=== PATIENT | female | born 2000 | race Hispanic/Latino ===

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

== ENCOUNTER 2021-08-30 06:10 | Emergency (ER) | payer OTHER ==
--- OUTSIDE RECORDS SUMMARY | 2021-08-30 06:13 | XMS REPORT | Continuity of Care Document ---
:2000 Author Organization [facility] t Address [address] [place] [address] Care Team Providers Name Role Phone MAR REYNLODS Primary Care Physician Unavailable Lana DOMINGUEZ Attending Clinician Unavailable Sharda REYNOLDS Attending Clinician Unavailable TAMMY Attending Clinician Unavailable Only, Db Test Attending Clinician Unavailable Akbar UMANA Attending Clinician AKBAR Attending Clinician Unavailable Lana Rodriguez Attending Clinician Payers Payer Name Policy Type Policy Number Effective Date Expiration Date S [facility] [id number] 2020 00:00:00 Problems Condition Condition Condition Status Onset Resolution Last Treating Co mments Source Name Details Category Date Date Treatment Clinician Date Encounter Encounter Disease Active Uni vers for other for other 10-19 ity of general general 00:00: [place] counseling counseling 00 Me dical or advice or advice Bran ch on on contracept contracept ion ion BMI BMI Disease Active 2019- Univers 26.0-26.9, 26.0-26.9, 9-30 it y of adult adult 00:00: [place] 00 Medical Branch Allergies, Adverse Reactions, Alerts Allergy Allergy Status Severity Reaction(s) Onset Inactive Treating Comm ents Source Name Type Date Date Clinician NO KNOWN Drug Active Univers ALLERGIE Class ity of S [place] [facility] [place] Social History Social Habit Start Date Stop Date Quantity Comments Source Exposure to Not sure University of SARS-CoV-2 [place] [facility] (event) Branch Alcohol intake 2021-05-17 2021-05-17 Current University of 00:00:00 00:00:00 non-drinker of [facility] alcohol Branch (finding) History [facility] 2019-02-01 2019-02-01 5 University o f Financial 00:00:00 00:00:00 [place] [facility] History [facility] Food 2019-02-01 2019-02-01 1 Univers ity of Worry 00:00:00 00:00:00 [place] [facility] History [facility] Food 2019-02-01 2019-02-01 1 Univers ity of Scarcity 00:00:00 00:00:00 [place] [facility] History [facility] 2019-02-01 2019-02-01 2 University o f Transport Med 00:00:00 00:00:00 [place] [facility] History [facility] 2019-02-01 2019-02-01 2 University o f Transport Non-Med 00:00:00 00:00:00 [facility] edical Branch Tobacco use and 2018-12-11 2018-12-11 Never used Universit y of exposure 00:00:00 00:00:00 [facility] Sex Assigned At [birth year] Universit y of 00:00:00 00:00:00 [facility] Smoking Status Start Date Stop Date Source Never smoker [facility] Medications Ordered Filled Start Stop Current Ordering Indication Dosage Frequency Signature Comments Components Source Medication Medication Date Date Medication? Clinician (SIG) Name Name LOESTRIN FE Yes [id number] 1{tbl} Take 1 Univers (MICROGESTI 8-17 tablet by ity of N FE 08/04) 00:00: mouth [place] 1 mg-20 mcg 00 daily. Medica l (21)/75 mg Branch (7) tablet LOESTRIN FE Yes [id number] 1{tbl} Take 1 Univers (MICROGESTI 8-17 tablet by ity of N FE 08/04) 00:00: mouth [place] 1 mg-20 mcg 00 daily. Medica l (21)/75 mg Branch (7) tablet LOESTRIN FE Yes [id number] 1{tbl} Take 1 Univers (MICROGESTI 8-17 tablet by ity of N FE 08/04) 00:00: mouth [place] 1 mg-20 mcg 00 daily. Medica l (21)/75 mg Branch (7) tablet Immunizations Ordered Filled Immunization Date Status Comments Sour e Immunization Name Name HPV9 2020-06-14 Completed University of 00:00: [facility] Influenza Virus 2020-06-14 Completed Universit y of Vaccine Quad .5 mL 00:00:00 [facility] 6+ MO Branch HPV9 2020-06-14 Completed University of 00:00: [facility] Influenza Virus 2020-06-14 Completed Universit y of Vaccine Quad .5 mL 00:00:00 [facility] IM 6+ MO Branch HPV9 2020-06-14 Completed University of 00:00:00 [facility] Influenza Virus 2020-06-14 Completed Universit y of Vaccine Quad .5 mL 00:00:00 [facility] 6+ MO Branch HPV9 2020-04-30 Completed University of 00:00:00 [facility] HPV9 2020-04-30 Completed University of 00:00:00 [facility] HPV9 2020-04-30 Completed University of 00:00:00 [facility] TDAP 2020-03-02 Completed University of 00:00:00 [facility] Rho (d) Immune 2020-03-02 Completed University of Globulin 00:00:00 [facility] TDAP 2020-03-02 Completed University of 00:00:00 [facility] Rho (d) Immune 2020-03-02 Completed University of Globulin 00:00:00 [facility] TDAP 2020-03-02 Completed University of 00:00:00 [facility] Rho (d) Immune 2020-03-02 Completed University of Globulin 00:00:00 [facility] Rho (d) Immune 2019-02-02 Completed University of Globulin 00:00:00 [facility] Rho (d) Immune 2019-02-02 Completed University of Globulin 00:00:00 [facility] Rho (d) Immune 2019-02-02 Completed University of Globulin 00:00:00 [facility] TDAP 2018-12-11 Completed University of 00:00:00 [facility] TDAP 2018-12-11 Completed University of 00:00:00 [facility] TDAP 2018-12-11 Completed University of 00:00:00 [facility] Vital Signs Vital Name Observation Time Observation Value Comments Source Systolic blood 2021-05-17 17:53:00 114 mm[Hg] Univer sity of pressure [facility] Diastolic blood 2021-05-17 17:53:00 73 mm[Hg] Unive rsity of pressure [facility] Heart rate 2021-05-17 17:53:00 72 /min [facility] Body temperature 2021-05-17 17:53:00 36.61 [place] Respiratory rate 2021-05-17 17:53:00 18 /min [facility] Body height 2021-05-17 17:53:00 157.5 cm [facility] Body weight 2021-05-17 17:53:00 68.947 kg [facility] BMI 2021-05-17 17:53:00 27.80 kg/m2 [facility] Procedures Procedure Date / Time Performed Performing Clinician Sourc e POCT TEST 2021-05-17 18:07:00 [facility] Encounters Start End Encounter Admission Attending Care Care Encounter Source Date/Time Date/Time Type Type Clinicians Facility Department ID 2021-11-03 2021-11-03 Outpatient R ANGELICA [facility] [id number] Univers 09:45:00 09:45:00 YRIS [facility] 2021-09-05 2021-09-05 Outpatient R RODOLFO, [facility] [id number] Univers 15:00:00 15:00:00 MAR [id number] ity o f [facility] 2021-09-05 2021-09-05 Outpatient R RODOLFO [facility] [id number] Univers 15:00:00 15:00:00 MAR ity o f [facility] 2021-08-01 2021-08-01 Outpatient R [facility] [id number] Univers 10:45:00 10:45:00 [id number] [facility] 2021-08-01 2021-08-01 Outpatient R TAMMY, [facility] [id number] Univers 10:45:00 10:45:00 JOSE [facility] 2021-07-20 2021-07-20 Outpatient [facility] [id number] Univers 11:45:00 11:45:00 [id number] [facility] 2021-07-18 2021-07-18 Laboratory Only, Ang Db Test [facility] [id number] Univers 11:45:00 12:00:00 Only Norah Webber [facility] [id number] [facility] [id number] Mychal as LAUREN?BLEA [id number] Ma joana [address] MEDICAL OFFICE BUILDING 2021-07-18 2021-07-18 [facility] [id number] Univers 11:45:00 11:45:00 NORAH [facility] 2021-07-18 2021-07-18 Outpatient R [facility] [id number] Univers 11:45:00 11:45:00 [id number] [facility] 2021-05-17 2021-05-[address] [facility] [id number] Univers 12:46:31 13:06:38 Visit Yris Schwartz [employer] [id number] it [facility] [id number] Mychal as MATERNAL [id number] [facility] ical & CHILD [address] [place] [address] Results Test Description Test Time Test Comments Results Result Comments Source POCT TEST 2021-05-17 18:07:00 Test Item Value Reference Range Interpretation Comme nts POCT PREG (test code = 1605) Negative On board controls acceptable with C Line (test code = 3574) Yes POCT PREG LOT # (test code = 3575) POCT PREG TEST DATE (test code = 3576) [id number] 18:07:00 Test Item Value Reference Range Interpretation Comments POCT PREG (test code = 1605) Negative On board controls acceptable with C Yes Line (test code = 3574) POCT PREG LOT # (test code = 3575) POCT PREG TEST DATE (test code = 3576) [facility]
--- NOTE | 2021-08-30 07:07 | RAD REPORT ---
EXAM DESCRIPTION: US - Abdomen Exam Limited - 08/30/2021 6:56 am CLINICAL HISTORY: EPIGASTRIC PAIN COMPARISON: None FINDINGS: Gallbladder size is normal. There is no wall thickening or pericholecystic fluid. No mobil e gallstones are identified. There is a 6 x 2 mm sessile echogenic mass that is isoechoic to and adhe rent to the wall of the gallbladder. No posterior acoustic shadowing seen. This is most likely a gall bladder polyp rather than nonshadowing stone or tumefactive sludge. No other intra lumen abnormality or focal finding. No common duct stone or biliary tree dilatation identified. IMPRESSION: No acute gallbladder finding. A 6 mm polyp is seen in the midportion of the gallbladder. No duct stone or biliary tree dilatation.
[2021-08-30 07:10] LABS: Absolute Lymphocytes (CBC) 1.8 K/uL (0.7-4.9); Hematocrit 35.8 % (36.0-45.0); Lymphocytes % 21.4 % (15.3-44.8); MPV 7.2 fL (7.6-11.3); RBC Red Blood Cell Count 4.08 M/uL (3.86-4.86)
[2021-08-30] MEDS ORDERED: KETOROLAC 30 MG/ML INJ ONE (07:16)
[2021-08-30] MEDS ORDERED: FAMOTIDINE 20 MG/2 ML VIAL IV ONE (07:16)
[2021-08-30] MEDS ORDERED: NA CHLORIDE 0.9% 1,000 ML ONE (07:16)
[2021-08-30] MEDS ORDERED: ONDANSETRON 4 MG/2 ML VIAL ONE (07:16)
[2021-08-30 07:23] LABS: Urine Specific Gravity/Preg >1.030 (1.005-1.030)
[2021-08-30 07:37] LABS: Alkaline Phosphatase 80 U/L (45-117); BUN Blood Urea Nitrogen 15 mg/dL (7-18); Bicarbonate 24 mmol/L (21-32); Bilirubin Total 0.5 mg/dL (0.2-1.0); Glucose Level 95 mg/dL (74-106); Lipase 127 U/L (73-393); Potassium 3.8 mmol/L (3.5-5.1); Sodium Level 138 mmol/L (136-145)
[2021-08-30 08:00] LABS: ALT/SGPT 37 U/L (12-78); AST/SGOT 46 U/L (15-37); Albumin 3.5 g/dL (3.4-5.0); Bilirubin Direct 0.2 mg/dL (0-0.2); Protein, Total 6.9 g/dL (6.4-8.2)
--- NOTE | 2021-08-30 08:25 | ER ---
Nurse's Notes [facility] Name: Luh Her Age: 21 yrs Sex: Female : 2000 Arrival Date: 08/30/2021 Time: 06:14 Bed 6 Private MD: Diagnosis: Epigastric pain Presentation: 08/30 06:20 Chief complaint: Patient states: Epigastric pain that radiates to her back started at st1 0100 today. Coronavirus screen: Vaccine status: Patient reports receiving the 2nd dose of the covid vaccine. pfizer. Ebola Screen: No symptoms or risks identified at this time. 06:20 Method Of Arrival: Ambulatory st1 06:22 Initial Sepsis Screen: Does the patient meet any 2 criteria? No. Patient's initial st1 sepsis screen is negative. Does the patient have a suspected source of infection? No. Patient's initial sepsis screen is negative. Risk Assessment: Do you want to hurt yourself or someone else? Patient reports no desire to harm self or others. Onset of symptoms was August 30, 2021. 06:22 Acuity: MAO 3 st1 Triage Assessment: 06:22 General: Appears in no apparent distress. uncomfortable, slender, well groomed, well st1 developed, Behavior is calm, cooperative. Pain: Complains of pain in Epigastric region Pain radiates to Back Pain currently is 6 out of 10 on a pain scale. Quality of pain is described as radiating, sharp. Cardiovascular: No deficits noted. Denies chest pain, diaphoresis, fatigue, lightheadedness, nausea, shortness of breath, syncope, vomiting. 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 - Social history:: Smoking status: Patient denies any tobacco usage or history of. Patient/guardian denies using alcohol, street drugs, IV drugs. Screenin:32 Abuse screen: Denies threats or abuse. Nutritional screening: No deficits noted. st1 Tuberculosis screening: No symptoms or risk factors identified. Fall Risk None identified. No fall in past 12 months (0 pts). No secondary diagnosis (0 pts). IV access (20 points). Ambulatory Aid- None/Bed Rest/Nurse Assist (0 pts). Gait- Normal/Bed Rest/Wheelchair (0 pts) Mental Status- Oriented to own ability (0 pts). Total Smith Fall Scale indicates No Risk (0-24 pts). Assessment: 07:15 General: Appears in no apparent distress. uncomfortable, Behavior is calm, cooperative, jl7 appropriate for age. Pain: Complains of pain in epigastric area Pain does not radiate. Pain currently is 7 out of 10 on a pain scale. Quality of pain is described as aching, sharp, Pain began 7 hours ago Is continuous. Neuro: Level of Consciousness is awake, alert, obeys commands, Oriented to person, place, time, situation. Cardiovascular: Patient's skin is warm and dry. Respiratory: Airway is patent Respiratory effort is even, unlabored, Respiratory pattern is regular, symmetrical. GI: Abdomen is non-distended, Bowel sounds present X 4 quads. hyperactive in right upper quadrant, left upper quadrant, right lower quadrant and left lower quadrant Patient currently denies constipation, diarrhea, nausea, vomiting. :. Derm: Skin is pink, warm \T\ dry. Vital Signs: 06:22 BP 126 / 75; Pulse 91; Resp 16; Temp 98.2; Pulse Ox 100% on R/A; Weight 66.68 kg; st1 Height 5 ft. 2 in. (157.48 cm); Pain 7/10; 07:34 BP 108 / 73; Pulse 71; Resp 15; Pulse Ox 100% ; jl7 08:34 BP 111 / 73; Pulse 78; Resp 16; Pulse Ox 99% on R/A; ic1 06:22 Body Mass Index 26.89 (66.68 kg, 157.48 cm) st1 ED Course: 06:14 Patient arrived in ED. ja2 06:22 Arm band placed on right wrist. st1 06:23 Triage completed. st1 06:25 Solo Melendez PA is PHCP. cp 06:25 Solo Shepherd MD is Attending Physician. cp 06:32 Patient has correct armband on for positive identification. Placed in gown. Bed in low st1 position. Call light in reach. Side rails up X 1. desk monitor on. Pulse ox on. NIBP on. 06:32 Patient maintains SpO2 saturation greater than 95% on room air. st1 06:55 Initial lab(s) drawn, by me, sent to lab. Missed attempt(s): 20 gauge in right bb antecubital area. Bleeding controlled, band aid applied, catheter tip intact. 06:56 US Abdomen Limited In Process Unspecified. EDMS 07:00 Annika Rowland RN is Primary Nurse. st1 07:20 Urine collected: clean catch specimen. Inserted saline lock: 20 gauge in right jl7 antecubital area, using aseptic technique. Blood collected. 07:29 Primary Nurse role handed off by Annika Rowland RN jl7 07:29 Esequiel Mendoza RN is Primary Nurse. jl7 08:11 XRAY Chest (1 view) In Process Unspecified. EDMS 08:23 Ayush Christian MD is Referral Physician. cp 08:35 IV discontinued, intact, bleeding controlled, No redness/swelling at site. Pressure ic1 dressing applied. Administered Medications: 07:20 Drug: Pepcid (famotidine) 20 mg Route: IVP; Site: right forearm; jl7 07:50 Follow up: Response: No adverse reaction jl7 07:22 Drug: NS 0.9% 1000 ml Route: IV; Rate: 1 bolus; Site: right forearm; jl7 08:35 Follow up: IV Status: Completed infusion; IV Intake: 1000ml ic1 07:27 Drug: Ketorolac 15 mg Route: IVP; Site: right forearm; jl7 07:50 Follow up: Response: No adverse reaction; Pain is decreased jl7 07:28 Not Given (Patient Refused): Zofran (Ondansetron) 4 mg IVP once; over 2 minutes st1 Intake: 08:35 IV: 1000ml; Total: 1000ml. ic1 Outcome: 08:23 Discharge ordered by . cp 08:35 Discharged to home ambulatory. ic1 08:35 Condition: stable 08:35 Discharge instructions given to patient, Instructed on discharge instructions, follow up and referral plans. Demonstrated understanding of instructions, follow-up care, medications, Prescriptions given X 2. 08:44 Patient left the ED. ic1 Signatures: Dispatcher [employer] EDOK Allyson Daniels RN RN bb Page, Solo, Esequiel Whittaker cp, RN RN jl7 Marquita Sanders2 Sarai Rayo RN RN ic1 Annika Rowland RN RN st1 Corrections: (The following items were deleted from the chart) 06:33 06:33 Pain: Pain began st1 st1 07: 07:27 Ketorolac 15 mg IVP in right forearm st1 jl7 07: 07:22 Pepcid (famotidine) 20 mg IVP in right forearm [facility] : 07:22 NS 0.9% 1000 ml IV at 1 bolus in right forearm st1 jl7
--- NOTE | 2021-08-30 08:25 | EDPHYS ---
Physician Documentation [facility] Name: Luh Her Age: 21 yrs Sex: Female : 2000 Arrival Date: 08/30/2021 Time: 06:14 Bed 6 Private MD: ED Physician Solo Shepherd HPI: 08/30 06:36 This 21 yrs old Female presents to ER via Ambulatory with complaints of Chest cp Pain, Back Pain. 06:36 The patient presents with abdominal pain in the epigastric area. cp 06:36 Onset: The symptoms/episode began/occurred this morning. Associated signs and symptoms: cp Pertinent positives: nausea, Pertinent negatives: anorexia, blood in stools, constipation, diarrhea, dysuria, fever, hematuria, vomiting. The symptoms are described as sharp. 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 - Social history:: Smoking status: Patient denies any tobacco usage or history of. Patient/guardian denies using alcohol, street drugs, IV drugs. ROS: 06:39 Constitutional: Negative for body aches, chills, fever, poor PO intake. cp 06:39 Eyes: Negative for injury, pain, redness, and discharge. cp 06:39 Cardiovascular: Negative for chest pain, palpitations. 06:39 Respiratory: Negative for cough, shortness of breath, wheezing. 06:39 Abdomen/GI: Positive for abdominal pain, of the epigastric area. 06:39 Back: Positive for pain at rest, of the left subscapular area and right subscapular area. 06:39 : Negative for urinary symptoms. Exam: 06:39 ECG was reviewed by the Attending Physician. cp 06:45 Constitutional: The patient appears in no acute distress, alert, awake, non-toxic, well cp developed, well nourished. 06:45 Head/Face: Normocephalic, atraumatic. cp 06:45 Eyes: Periorbital structures: appear normal, Conjunctiva: normal, no exudate, no injection, Sclera: no appreciated abnormality, Lids and lashes: appear normal, bilaterally. 06:45 ENT: External ear(s): are unremarkable, Nose: is normal, Posterior pharynx: Airway: no evidence of obstruction, patent. 06:45 Chest/axilla: Inspection: normal. 06:45 Cardiovascular: Rate: normal, Rhythm: regular. 06:45 Respiratory: the patient does not display signs of respiratory distress, Respirations: normal, no use of accessory muscles, no retractions, labored breathing, is not present, Breath sounds: are clear throughout, no decreased breath sounds, no stridor, no wheezing. 06:45 Abdomen/GI: Inspection: abdomen appears normal, Bowel sounds: active, all quadrants, Palpation: soft, in all quadrants, moderate abdominal tenderness, in the epigastric area, rebound tenderness, is not appreciated, voluntary guarding, is not appreciated, involuntary guarding, is not appreciated. 06:45 Back: pain, that is mild, of the left subscapular area and right subscapular area, ROM is normal. 06:45 Neuro: Orientation: to person, place \T\ time. Mentation: is normal. Vital Signs: 06:22 BP 126 / 75; Pulse 91; Resp 16; Temp 98.2; Pulse Ox 100% on R/A; Weight 66.68 kg; st1 Height 5 ft. 2 in. (157.48 cm); Pain 7/10; 07:34 BP 108 / 73; Pulse 71; Resp 15; Pulse Ox 100% ; jl7 08:34 BP 111 / 73; Pulse 78; Resp 16; Pulse Ox 99% on R/A; ic1 06:22 Body Mass Index 26.89 (66.68 kg, 157.48 cm) st1 MDM: 06:27 Patient medically screened. catarina 07:00 Differential diagnosis: cholecystitis, Cholelithiasis, gastritis, pancreatitis, Peptic cp Ulcer Disease, Perf. Duodenal Ulcer, Perf. Gastric Ulcer, urinary tract infection. 08:21 Data reviewed: vital signs, nurses notes, lab test result(s), EKG, radiologic studies, cp CT scan, plain films. Test interpretation: by ED physician or midlevel provider: ECG, chest xray negative for infiltrates. ED course: VSS. Pain markedly improved with meds. Will discharge to home for continued monitoring. 08/30 06:38 Order name: Basic Metabolic Panel cp 08/30 07:51 Interpretation: Normal except: CL 108. cp 08/30 06:38 Order name: CBC with Diff; Complete Time: 07:36 cp 08/30 07:36 Interpretation: Normal except: HCT 35.8; MPV 7.2. cp 08/30 06:38 Order name: Hepatic Function cp 08/30 06:38 Order name: Lipase cp 08/30 07:21 Order name: Urine --Ancillary (enter results) bd 08/30 07:23 Order name: Urine --Ancillary; Complete Time: 07:36 EDMS 08/30 06:38 Order name: IV Saline Lock; Complete Time: 07:12 cp 08/30 06:38 Order name: Labs collected and sent; Complete Time: 07:12 cp 08/30 06:38 Order name: US Abdomen Limited; Complete Time: 07:09 cp 08/30 07:10 Interpretation: Report reviewed. 08/30 07:11 Order name: XRAY Chest (1 view) 08/30 06:38 Order name: Urine Dipstick-Ancillary (obtain specimen); Complete Time: 07:12 cp 08/30 06:38 Order name: Urine Test (obtain specimen); Complete Time: 07:12 cp EC:39 Rate is 79 beats/min. Rhythm is regular. MS interval is normal. QRS interval is normal. cp QT interval is normal. T waves are Inverted in leads III, aVR. Interpreted by me. Reviewed by me. Administered Medications: 07:20 Drug: Pepcid (famotidine) 20 mg Route: IVP; Site: right forearm; jl7 07:50 Follow up: Response: No adverse reaction jl7 07:22 Drug: NS 0.9% 1000 ml Route: IV; Rate: 1 bolus; Site: right forearm; jl7 08:35 Follow up: IV Status: Completed infusion; IV Intake: 1000ml ic1 07:27 Drug: Ketorolac 15 mg Route: IVP; Site: right forearm; jl7 07:50 Follow up: Response: No adverse reaction; Pain is decreased jl7 07:28 Not Given (Patient Refused): Zofran (Ondansetron) 4 mg IVP once; over 2 minutes st1 Disposition: 09:00 Co-signature as Attending Physician, Solo Shepherd MD I agree with the assessment and catarina plan of care. Disposition Summary: 08/30/21 08:23 Discharge Ordered Location: Home cp Problem: new cp Symptoms: have improved cp Condition: Stable cp Diagnosis - Epigastric pain cp Followup: cp - With: Ayush Christian MD - When: 1 week - Reason: pain continues Discharge Instructions: - Discharge Summary Sheet cp - Abdominal Pain, Adult cp Forms: - Medication Reconciliation Form cp - Thank You Letter cp - Antibiotic Education cp - Prescription Opioid Use cp Prescriptions: - Protonix 40 mg Oral tablet,delayed release (DR/EC) - take 1 tablet by ORAL route once daily for 14-21 days; 20 tablet; Refills: 0, cp Product Selection Permitted - Zofran 4 mg Oral Tablet - take 1 tablet by ORAL route every 12 hours As needed; 20 tablet; Refills: 0, cp Product Selection Permitted Signatures: Dispatcher [employer] Solo Black MD MD cha Page, Corey, PA PA cp Esequiel Mendoza RN RN jl7 Annika Rowland RN RN st1 Sarai Rayo RN ic1 Corrections: (The following items were deleted from the chart) 07:36 07:36 Normal except: HCT 35.8. cp cp
[2021-08-30 08:50] VITALS: TEMP 98.2
[2021-08-30 08:53] VITALS: BP 111/73; O2SAT 99
--- NOTE | 2021-08-30 09:05 | RAD REPORT ---
EXAM DESCRIPTION: RAD - Chest Single View - 08/30/2021 8:11 am CLINICAL HISTORY: epigastric pain COMPARISON: None TECHNIQUE: AP portable chest image was obtained 08/30/2021 8:11 am . FINDINGS: Lungs are clear. Heart and vasculature are normal. No measurable pleural effusion and no p neumothorax. No acute bony abnormality seen. No acute aortic findings suspected. IMPRESSION: No acute cardiopulmonary process.
== END 2021-08-30 08:44 | disposition home or self-care (01) ==
LOC: ER 06:10
DX: R10.13 Epigastric pain (principal)
CPT/HCPCS: 96361; 93005; 85025; 80048; 36415; 81025; 80076; 83690; 71045; 76705; 96375; 96374; 99285; J7030; J2405